=== PATIENT | female | born 1960 | race Caucasian/White ===

== ENCOUNTER → 2023-08-16 10:14 | Outpatient (REF) | payer OTHER, SELFPAY | LOC: WDC 10:14 | PROVIDERS: ATTENDING PHYSICIAN Internal Medicine Geriatric Medicine | DX: N63.10 Unspecified lump in the right breast, unspecified quadrant (principal); N63.12 Unspecified lump in the right breast, upper inner quadrant | CPT/HCPCS: 76642; 77062; 77066 ==

== ENCOUNTER → 2023-12-27 11:48 | Outpatient (REF) | payer MEDICARE, OTHER, SELFPAY | LOC: RAD 11:48 | PROVIDERS: ATTENDING PHYSICIAN Internal Medicine Geriatric Medicine | DX: E11.9 Type 2 diabetes mellitus without complications (principal); E78.2 Mixed hyperlipidemia; I10 Essential (primary) hypertension; E03.9 Hypothyroidism, unspecified; M54.16 Radiculopathy, lumbar region; K21.9 Gastro-esophageal reflux disease without esophagitis; J45.20 Mild intermittent asthma, uncomplicated; G57.62 Lesion of plantar nerve, left lower limb; R07.89 Other chest pain; G25.3 Myoclonus; E87.6 Hypokalemia; Z13.89 Encounter for screening for other disorder; R10.31 Right lower quadrant pain; R10.813 Right lower quadrant abdominal tenderness | CPT/HCPCS: 72193; Q9967 ==

== ENCOUNTER → 2024-01-26 06:21 | Day surgery (SDC) | payer MEDICARE, OTHER, SELFPAY ==
[2024-01-26 07:39] LABS: Glucose - Point of Care 130 mg/dl (70-99)
== END ==
LOC: GI 06:21
PROVIDERS: ATTENDING PHYSICIAN Internal Medicine Gastroenterology
DX: D12.0 Benign neoplasm of cecum (principal); Q43.8 Other specified congenital malformations of intestine; R93.3 Abnormal findings on diagnostic imaging of other parts of digestive tract; Z86.010 Personal history of colon polyps
CPT/HCPCS: 45385; 45381; 88305; 82962